=== PATIENT | female | born 1955 | race Two or more races ===

== ENCOUNTER 2019-05-07 12:45 | Inpatient (IN) | payer OTHER ==
[~2019-05-07] VITALS: Ht 152.4 cm; Wt 49.4 kg
[2019-05-07] MEDS ORDERED: LEVOTHYROXINE25 MCG PO (14:18)
[2019-05-07] MEDS ORDERED: SIMVASTATIN20 MG PO (14:19)
[2019-05-07] MEDS ORDERED: AMLODIPINE-OLM1 EAC2 PO (14:21)
[2019-05-12] MEDS ORDERED: ULTRACET PO (11:59)
== END 2019-05-12 12:15 | disposition home or self-care (01) | DRG 334 ==
LOC: O/R 12:45 → SURG 05-11 07:00 → SURH 05-11 13:11
PROVIDERS: ADMIT Surgery
PROC: 0DBP4ZZ Excision of Rectum, Percutaneous Endoscopic Approach (ICD-10-PCS; principal; 2019-05-11 07:00)
DX: D12.8 Benign neoplasm of rectum (principal)

== ENCOUNTER 2021-01-26 06:27 | Day surgery (SDC) | payer OTHER ==
[~2021-01-26 06:27] MED LIST: AMLODIPINE-OLM1 EAC2 PO; LEVOTHYROXINE25 MCG PO; SIMVASTATIN20 MG PO; ULTRACET PO
== END 2021-01-26 10:40 | disposition home or self-care (01) ==
LOC: AMB-ENDOS 06:27
PROVIDERS: ATTEND Surgery
DX: K62.1 Rectal polyp (principal); Z20.822 Contact with and (suspected) exposure to COVID-19

== ENCOUNTER 2023-06-29 11:52 | Inpatient (IN) | payer OTHER ==
[~2023-06-29] VITALS: Ht 152.4 cm; Wt 47.6 kg
[2023-06-29] MEDS ORDERED: LOSARTAN POTASS50 MG PO (13:06)
[2023-06-29] MEDS ORDERED: ALPHAGAN P5 M2 (13:07)
[2023-06-29 17:03] LABS: HEMATOCRIT 29.7 % (36.0-45.00); MEAN CELL VOLUME 79.5 fL (80.00-100.00); MEAN CORPUSCULAR HEMOGLOBIN 26.7 pg (27.00-32.0); MEAN CORPUSCULAR HGB CONC 33.6 g/dl (32.0-36.0); PLATELET COUNT 593 K/uL (150-450); RED BLOOD COUNT 3.74 M/uL (4.00-6.00)
[2023-06-29 17:06] LABS: URINE APPEARANCE Clear; URINE BILIRRUBIN Negative (NEGATIVE); URINE BLOOD Negative; URINE COLOR Yellow; URINE GLUCOSE Negative (NEGATIVE); URINE LEUKOCYTE Negative; URINE NITRATE Negative; URINE PROTEIN Negative (NEGATIVE); URINE UROBILINOGEN 0.2 E.U./dl
[2023-06-29 17:10] LABS: URINE BACTERIA 11.3 uL (0.0-1933); URINE EPITHELIAL CELLS 2.7 uL (0.0-38.8); URINE WBC 3.9 uL (0.0-23.2)
[2023-06-29 17:12] LABS: RED CELL DISTRIBUTION WIDTH 16.1 % (11.5-14.5)
[2023-06-29 17:24] LABS: INR 1.12; PARTIAL THROMBOPLASTIN TIME 27.3 SECONDS (22.0-34.0); PROTHROMBIN TIME 11.7 SECONDS (9.0-11.5)
[2023-06-29 17:27] LABS: ALBUMIN 2.9 gm/dL (3.4-5.0); BILIRUBIN TOTAL 0.46 mg/dL (0.3-1.2); CALCIUM 8.6 mg/dL (8.5-10.1); CREATININE SERUM 0.76 mg/dL (0.55-1.02); GFR 75.68; GLOBULINA 4.1 G/DL (2.4-3.5); POTASSIUM 3.87 mEq/L (3.5-5.1)
[2023-06-29 17:35] LABS: URINE RBC 1.4 uL (0.0-20.8)
[2023-06-30] MEDS ORDERED: SYNTHROID75 MCG (13:22)
[2023-07-02 12:22] LABS: MEAN CELL VOLUME 80.3 fL (80.00-100.00); MEAN CORPUSCULAR HGB CONC 32.2 g/dl (32.0-36.0); RED BLOOD COUNT 3.49 M/uL (4.00-6.00); RED CELL DISTRIBUTION WIDTH 16.2 % (11.5-14.5)
[2023-07-02 12:23] LABS: MEAN CORPUSCULAR HEMOGLOBIN 25.7 pg (27.00-32.0); PLATELET COUNT 555 K/uL (150-450)
[2023-07-02 12:24] LABS: ALBUMIN 2.8 gm/dL (3.4-5.0); BILIRUBIN TOTAL 0.43 mg/dL (0.3-1.2); CALCIUM 7.7 mg/dL (8.5-10.1); CREATININE SERUM 0.68 mg/dL (0.55-1.02); GFR 86.04; GLOBULINA 3.1 G/DL (2.4-3.5); POTASSIUM 4.48 mEq/L (3.5-5.1); TOTAL PROTEIN 5.9 gm/dL (6.4-8.2)
[2023-07-02 22:47] LABS: CALCIUM 7.3 mg/dL (8.5-10.1); CHOL HDL RATIO 2.7 (0-5.0); CREATININE SERUM 1.1 mg/dL (0.55-1.02); GFR 49.39; POTASSIUM 3.53 mEq/L (3.5-5.1)
[2023-07-04 07:27] LABS: PARTIAL THROMBOPLASTIN TIME 31.1 SECONDS (22.0-34.0)
[2023-07-04 08:00] LABS: ALBUMIN 2.2 gm/dL (3.4-5.0); BILIRUBIN TOTAL 0.27 mg/dL (0.3-1.2); CALCIUM 7.2 mg/dL (8.5-10.1); CREATININE SERUM 0.81 mg/dL (0.55-1.02); GFR 70.31; GLOBULINA 2.7 G/DL (2.4-3.5); HEMATOCRIT 24.9 % (36.0-45.00); MAGNESIUM 2.6 mg/dL (1.8-2.4); MEAN CELL VOLUME 79.7 fL (80.00-100.00); MEAN CORPUSCULAR HGB CONC 33.3 g/dl (32.0-36.0); PLATELET COUNT 439 K/uL (150-450); POTASSIUM 3.84 mEq/L (3.5-5.1); RED BLOOD COUNT 3.12 M/uL (4.00-6.00); RED CELL DISTRIBUTION WIDTH 15.8 % (11.5-14.5); TOTAL PROTEIN 4.9 gm/dL (6.4-8.2)
[2023-07-04 08:02] LABS: HEMOGLOBIN 8.3 g/dL (12.0-15.00); MEAN CORPUSCULAR HEMOGLOBIN 26.6 pg (27.00-32.0)
[2023-07-04 08:11] LABS: TSH 5.92 uIU/mL (0.358-3.74)
[2023-07-04 08:23] LABS: INR 1.19; PROTHROMBIN TIME 12.3 SECONDS (9.0-11.5)
[2023-07-04 11:04] LABS: UREA CLEARANCE 33.1 ML/MIN
[2023-07-05 10:21] LABS: HEMATOCRIT 38.8 % (36.0-45.00); HEMOGLOBIN 13.5 g/dL (12.0-15.00); MEAN CELL VOLUME 79.5 fL (80.00-100.00); MEAN CORPUSCULAR HEMOGLOBIN 27.7 pg (27.00-32.0); MEAN CORPUSCULAR HGB CONC 34.9 g/dl (32.0-36.0); PLATELET COUNT 548 K/uL (150-450); RED BLOOD COUNT 4.88 M/uL (4.00-6.00); RED CELL DISTRIBUTION WIDTH 16.3 % (11.5-14.5)
[2023-07-05 21:37] LABS: HEMATOCRIT 32.2 % (36.0-45.00); HEMOGLOBIN 10.8 g/dL (12.0-15.00); MEAN CELL VOLUME 80.5 fL (80.00-100.00); MEAN CORPUSCULAR HEMOGLOBIN 26.9 pg (27.00-32.0); MEAN CORPUSCULAR HGB CONC 33.4 g/dl (32.0-36.0); PLATELET COUNT 397 K/uL (150-450); RED CELL DISTRIBUTION WIDTH 16.5 % (11.5-14.5)
[2023-07-06 07:16] LABS: HEMATOCRIT 31.5 % (36.0-45.00); HEMOGLOBIN 10.5 g/dL (12.0-15.00); MEAN CELL VOLUME 81.6 fL (80.00-100.00); MEAN CORPUSCULAR HEMOGLOBIN 27.1 pg (27.00-32.0); MEAN CORPUSCULAR HGB CONC 33.3 g/dl (32.0-36.0); PLATELET COUNT 391 K/uL (150-450); RED BLOOD COUNT 3.86 M/uL (4.00-6.00); RED CELL DISTRIBUTION WIDTH 16.5 % (11.5-14.5)
[2023-07-06 07:59] LABS: ALBUMIN 2.4 gm/dL (3.4-5.0); CALCIUM 7.6 mg/dL (8.5-10.1); CREATININE SERUM 0.73 mg/dL (0.55-1.02); GFR 79.28; MAGNESIUM 2.2 mg/dL (1.8-2.4); POTASSIUM 3.73 mEq/L (3.5-5.1)
[2023-07-06 08:45] LABS: PHOSPHOROUS 1.7 mg/dL (2.5-4.9)
[2023-07-07 15:24] LABS: HEMATOCRIT 34.9 % (36.0-45.00); HEMOGLOBIN 11.5 g/dL (12.0-15.00); MEAN CELL VOLUME 81.1 fL (80.00-100.00); MEAN CORPUSCULAR HEMOGLOBIN 26.8 pg (27.00-32.0); PLATELET COUNT 422 K/uL (150-450); RED CELL DISTRIBUTION WIDTH 17.4 % (11.5-14.5)
[2023-07-07 16:00] LABS: CALCIUM 8.3 mg/dL (8.5-10.1); CREATININE SERUM 0.53 mg/dL (0.55-1.02); GFR 114.72; MAGNESIUM 2.1 mg/dL (1.8-2.4); POTASSIUM 3.85 mEq/L (3.5-5.1)
[2023-07-07 16:05] LABS: PHOSPHOROUS 1.6 mg/dL (2.5-4.9)
[2023-07-08 07:23] LABS: HEMATOCRIT 30.1 % (36.0-45.00); HEMOGLOBIN 10.2 g/dL (12.0-15.00); MEAN CELL VOLUME 81.2 fL (80.00-100.00); MEAN CORPUSCULAR HEMOGLOBIN 27.5 pg (27.00-32.0); MEAN CORPUSCULAR HGB CONC 33.8 g/dl (32.0-36.0); PLATELET COUNT 312 K/uL (150-450); RED BLOOD COUNT 3.71 M/uL (4.00-6.00); RED CELL DISTRIBUTION WIDTH 17.4 % (11.5-14.5)
[2023-07-08 07:24] LABS: CALCIUM 8.2 mg/dL (8.5-10.1); CREATININE SERUM 0.5 mg/dL (0.55-1.02); GFR 122.69; MAGNESIUM 2.1 mg/dL (1.8-2.4); PHOSPHOROUS 2.1 mg/dL (2.5-4.9)
[2023-07-08 07:25] LABS: POTASSIUM 4.11 mEq/L (3.5-5.1)
[2023-07-11 08:18] LABS: HEMATOCRIT 26.6 % (36.0-45.00); MEAN CELL VOLUME 82.6 fL (80.00-100.00); MEAN CORPUSCULAR HGB CONC 32.9 g/dl (32.0-36.0); PLATELET COUNT 283 K/uL (150-450); RED BLOOD COUNT 3.22 M/uL (4.00-6.00); RED CELL DISTRIBUTION WIDTH 17.9 % (11.5-14.5)
[2023-07-11 08:21] LABS: HEMOGLOBIN 8.7 g/dL (12.0-15.00)
[2023-07-11 08:36] LABS: INR 1.18; PARTIAL THROMBOPLASTIN TIME 28.1 SECONDS (22.0-34.0); PROTHROMBIN TIME 12.2 SECONDS (9.0-11.5)
[2023-07-11 08:40] LABS: ALBUMIN 2.1 gm/dL (3.4-5.0); ALKALINE PHOSPHATASE 98 U/L (50-136); ALT/SGPT 39 U/L (12-78); ANION GAP 8 (10.0-20.0); AST/SGOT 37 U/L (15-37); BILIRUBIN TOTAL 0.26 mg/dL (0.3-1.2); BILIRUBIN,CONJUGATED < 0.10 mg/dL (0.0-0.2); BILIRUBIN,UNCONJUGATED 0.16 mg/dL (0.0-0.6); BLOOD UREA NITROGEN 13 mg/dL (7-18); BUN CREA RATIO 21 (7.0-25.0); CALCIUM 8.2 mg/dL (8.5-10.1); CARBON DIOXIDE 30 mEq/L (21-32); CHLORIDE 107 mmol/L (98-107); CHOL HDL RATIO 5.1 (0-5.0); CHOLESTEROL 128 mg/dL (0-200); CREATININE SERUM 0.61 mg/dL (0.55-1.02); GFR 97.53; GLOBULINA 2.9 G/DL (2.4-3.5); GLUCOSE FASTING 109 mg/dL (65-100); HDL 25 mg/dl (40-60); LDL 78 mg/dl (0-130); OSMOLALITY SERUM 280 MOSM/KG (275-295); SODIUM 140 mmol/L (136-145); TRIGLYCERIDES 124 mg/dL (0-150); VLDL 24 (0-39)
[2023-07-11 11:43] LABS: UREA CLEARANCE 30.5 ML/MIN
[2023-07-11] MEDS ORDERED: INTESTINEX680 M1 PO (14:16)
[2023-07-11] MEDS ORDERED: NEURONTIN300 MG PO (14:16)
[2023-07-11] MEDS ORDERED: ACETAMINOPHEN500 M2 PO (14:16)
== END 2023-07-11 14:50 | disposition home or self-care (01) | DRG 390 ==
LOC: ER 11:52 → SURH 21:01 → O/R 07-01 10:58 → SURH 07-01 11:00
PROVIDERS: General Practice; Internal Medicine; Surgery; ADMIT Surgery; ATTEND Surgery
PROC: BW21YZZ Computerized Tomography (CT Scan) of Abdomen and Pelvis using Other Contrast (ICD-10-PCS; 2023-06-29)
PROC: BW21YZZ Computerized Tomography (CT Scan) of Abdomen and Pelvis using Other Contrast (ICD-10-PCS; 2023-06-29)
PROC: 02HV33Z Insertion of Infusion Device into Superior Vena Cava, Percutaneous Approach (ICD-10-PCS; principal; 2023-07-01)
PROC: 0D9670Z Drainage of Stomach with Drainage Device, Via Natural or Artificial Opening (ICD-10-PCS; 2023-07-01)
PROC: 3E0G76Z Introduction of Nutritional Substance into Upper GI, Via Natural or Artificial Opening (ICD-10-PCS; 2023-07-01)
PROC: 30243N1 Transfusion of Nonautologous Red Blood Cells into Central Vein, Percutaneous Approach (ICD-10-PCS; 2023-07-05)
DX: K56.609 Unspecified intestinal obstruction, unspecified as to partial versus complete obstruction (principal); D37.5 Neoplasm of uncertain behavior of rectum; K56.1 Intussusception; K63.89 Other specified diseases of intestine; E03.9 Hypothyroidism, unspecified; I10 Essential (primary) hypertension; D64.9 Anemia, unspecified